=== PATIENT | female | born 1995 | race Caucasian/White ===

== ENCOUNTER 2017-06-29 20:12 | Emergency (ER) | payer MEDICAID ==
[2017-06-29 20:24] VITALS: BP 108/81
--- NOTE | 2017-06-29 21:13 | ER Report ---
History and Physical Time Seen By MD: 20:15 Hx. of Stated Complaint: pt reporting sore throat and outside of the throat "feeling wierd" for two weeks. No chest pain or trouble breathing. HPI/ROS CHIEF COMPLAINT: Anterior neck pain HISTORY OF PRESENT ILLNESS: 22-year-old female otherwise healthy presents with sore throat and mild swelling and tenderness left anterior neck duration 2 weeks worse after getting off the plane recently where she noticed changes in pressure. Mild ear discomfort at that time. No ear discharge hearing loss or tinnitus. No fevers chills cough chest pain chest breath back pain back pain urinary symptoms. Not . No abdominal pain urinary symptoms vaginal discharge. No rashes headache neck stiffness. No other concerns or complaints today. REVIEW OF SYSTEMS: Respiratory: No cough, no dyspnea. Cardiovascular: No chest pain, no palpitations. Gastrointestinal: No vomiting, no abdominal pain. Musculoskeletal: No back pain. Allergies: Coded Allergies: oseltamivir (Verified Allergy, Unknown, 06/29/17) Home Meds No Active Prescriptions or Reported Meds Constitutional Vital Sign - Last 24 Hours 06/29/17 20:24 Temp 97.1 Pulse 85 B/P (MAP) 108/81 Pulse Ox 95 O2 Delivery Room Air Physical Exam General Appearance: The patient is alert, has no immediate need for airway protection and no current signs of toxicity. No acute distress Eyes: Pupils equal and round no injection. HEENT: Mild tonsillar swelling without exudates no pharyngeal erythema normal dentition left anterior cervical lymphadenopathy and shoddy and minimally tender right side appears normal. Neck: No stiffness no nuchal rigidity no meningismus no limitations on range of motion of midline tenderness Respiratory: Chest is non tender, lungs are clear to auscultation. Cardiac: regular rate and rhythm no murmurs gallops or rubs Gastrointestinal: Abdomen is soft and non tender, no masses, bowel sounds normal. Musculoskeletal: No swelling deformity or edema Extremities have full range of motion and are non tender. Skin: No rashes or lesions. Otherwise negative DIFFERENTIAL DIAGNOSIS: After history and physical exam differential diagnosis was considered for strep pharyngitis influenza viral pharyngitis no signs of peritonsillar abscess pneumonia meningitis or other serious or dangerous pathology. Medical Decision Making Data Points Laboratory Hematology Test 06/29/17 21:30 Influenza Virus Type A (PCR) Negative (NEGATIVE) Influenza Virus Type B (PCR) Negative (NEGATIVE) Group A Streptococcus Screen Negative (NEGATIVE) Chemistry Test 06/29/17 21:30 Influenza Virus Type A (PCR) Negative (NEGATIVE) Influenza Virus Type B (PCR) Negative (NEGATIVE) Group A Streptococcus Screen Negative (NEGATIVE) ED Course/Re-evaluation ED Course The patient appeared comfortable and did not require specialized monitoring or intervention or other specialized care throughout her ED stay. All labs were discussed home care follow-up and reasons to return were discussed return precautions discussed for any worsening., Care including saltwater gargles and throat lozenges Zicam airborne vitamin C vitamin E light exercise only plenty of rest 20 hydration and initiation were all emphasized. Decision to Disposition Date: Jun 29, 2017 Decision to Disposition Time: 23:06 Depart Departure Latest Vital Signs Vital Signs Date Time Temp Pulse Resp B/P (MAP) Pulse Ox O2 Delivery O2 Flow Rate FiO2 06/29/17 20:24 97.1 85 108/81 95 Room Air Impression: Primary Impression: Pharyngitis with viral syndrome Condition: Condition Unchanged Disposition: HOME OR SELF-CARE New Scripts No Active Prescriptions or Reported Meds Patient Instructions: Pharyngitis (ED) ROHINI WYLIE MD Jun 29, 2017 21:13
== END 2017-06-29 23:10 | disposition home or self-care (01) ==
LOC: ER 20:41
DX: J02.9 Acute pharyngitis, unspecified (principal); B34.9 Viral infection, unspecified
CPT/HCPCS: 87081; 87502; 87880; 99282